=== PATIENT | female | born 1995 | race Caucasian/White ===

== ENCOUNTER 2017-11-11 06:20 | Inpatient (IN) ==
[2017-11-13 07:09] VITALS: BP 122/67
== END 2017-11-13 14:35 | disposition home or self-care (01) | DRG 560 ==
LOC: N.LDOUT 06:20 → N.LD 06:24 → N.OB 19:55
PROVIDERS: ADMIT Obstetrics & Gynecology; ATTEND Obstetrics & Gynecology